=== PATIENT | female | born 1975 | race Caucasian/White ===

== ENCOUNTER 2017-03-27 19:20 | Emergency (ER) | payer OTHER ==
[2017-03-27] MEDS ORDERED: TORAdol 30 mg Injection IM ONE (19:33)
--- NOTE | 2017-03-27 19:36 | ERPHSYRPT ---
- History of Present Illness Time Seen by Provider: 03/27/17 19:28 Source: patient Exam Limitations: no limitations Physician History: 41 y/o female comes to the ER after having her right foot get stuck into a ditch. Pt describes the pain as sharp, constant, 8/10, worse with movement and not relieved by motrin. Pt says she was able to limp to the ER but it was very painful. Method of Injury: twisted Occurred: just prior to arrival Quality: constant Severity of Pain-Max: severe Severity of Pain-Current: severe Lower Extremities Pain: ankle: right Modifying Factors: Improves With: movement Associated Symptoms: unable to bear weight Allergies/Adverse Reactions: No Known Drug Allergies Allergy (Unverified 09/23/13 04:22) Home Medications: Multivitamin [Multivitamins] 1 each PO DAILY 09/23/13 [History] Hx Tetanus, Diphtheria Vaccination/Date Given: Yes Hx Influenza Vaccination/Date Given: No Hx Pneumococcal Vaccination/Date Given: No - Review of Systems Constitutional: No Fever, No Chills Eyes: No Symptoms Ears, Nose, & Throat: No Symptoms Respiratory: No Cough, No Dyspnea Cardiac: No Chest Pain, No Edema, No Syncope Abdominal/Gastrointestinal: No Abdominal Pain, No Nausea, No Vomiting, No Diarrhea Genitourinary Symptoms: No Dysuria Musculoskeletal: Joint Swelling, No Back Pain, No Neck Pain Skin: No Rash Neurological: No Dizziness, No Focal Weakness, No Sensory Changes Psychological: No Symptoms Endocrine: No Symptoms All Other Systems: Reviewed and Negative - Past Medical History Pertinent Past Medical History: No Neurological History: No Pertinent History ENT History: No Pertinent History Cardiac History: No Pertinent History Respiratory History: No Pertinent History Endocrine Medical History: No Pertinent History Musculoskeletal History: No Pertinent History GI Medical History: No Pertinent History History: No Pertinent History Psycho-Social History: No Pertinent History Female Reproductive Disorders: No Pertinent History - Past Surgical History Past Surgical History: Yes Neuro Surgical History: No Pertinent History Cardiac: No Pertinent History Respiratory: No Pertinent History Gastrointestinal: Appendectomy Genitourinary: No Pertinent History Musculoskeletal: No Pertinent History Female Surgical History: No Pertinent History - Social History Smoking Status: Current every day smoker How long have you smoked: 10 yrs Exposure to second hand smoke: Yes Drug Use: none Patient Lives Alone: No - Female History Hx Now: No - Nursing Vital Signs Nursing Vital Signs: Pain Scale Pain Intensity 8 - Physical Exam General Appearance: alert Eyes, Ears, Nose, Throat Exam: moist mucous membranes Neck Exam: non-tender, supple Cardiovascular/Respiratory Exam: chest non-tender, normal breath sounds, regular rate/rhythm, no respiratory distress Gastrointestinal/Abdominal Exam: non-tender, guarding Back Exam: normal inspection, No vertebral tenderness Ankle Exam: right ankle: limited range of motion, pain, soft tissue tenderness, swelling Neuro/Tendon Exam: normal sensation, normal motor functions Mental Status Exam: alert, oriented x 3, cooperative Skin Exam: normal color, warm, dry - Course Nursing assessment & vital signs reviewed: Yes Ordered Tests: Active Orders 24 hr Category Date Time Status Crutches STAT Care 03/27/17 20:15 Ordered Splint STAT Care 03/27/17 20:14 Ordered ANKLE (3 VIEWS) Stat Exams 03/27/17 Taken Medication Summary Discontinued Medications Generic Name Dose Route Start Last Admin Trade Name Freq PRN Reason Stop Dose Admin Ketorolac Tromethamine 60 mg 03/27/17 19:33 03/27/17 19:41 Toradol 30 Mg Injection IM 03/27/17 19:34 60 mg STAT ONE Administration Ketorolac Tromethamine Confirm 03/27/17 19:38 Toradol 30 Mg Injection Administered 03/27/17 19:39 Dose 60 mg .ROUTE .STK-MED ONE - Progress Progress: improved Progress Note: 03/27/17 20:15 The x ray of the right ankle appears to show a small right distal fibula fracture. Pt feels better after receiving toradol. Pt will be applied in a splint and will be giving crutches. Pt will also be referred to orthopedics. - Departure Time of Disposition: 20:16 Departure Disposition: Home Clinical Impression: Fracture of distal fibula Qualifiers: Encounter type: initial encounter Fracture type: closed Fracture morphology: unspecified fracture morphology Laterality: right Qualified Code(s): S82.831A - Other fracture of upper and lower end of right fibula, initial encounter for closed fracture Condition: Stable Critical Care Time: No Referrals: STANISLAW CROFT [Primary Care Provider] - IWONA MCCLENDON [ACTIVE STAFF] - Instructions: Foot Fracture Additional Instructions: Follow up with Dr Mcclendon tomorrow for further recommendations. Prescriptions: Ketorolac Tromethamine [Toradol] 10 mg PO QID PRN #20 tablet PRN Reason: Pain
[2017-03-27] MEDS ORDERED: TORAdol 30 mg Injection ONE (19:38)
[2017-03-27 20:35] VITALS: BP 125/71; PULSE 72; O2SAT 97
--- NOTE | 2017-03-28 08:56 | XRAY ---
Indication: Pain following twisting injury. Remote lateral malleolar fracture 20 years ago. Comparison: None 3 views of the right ankle demonstrates mild anterolateral soft tissue swelling, tiny medial malleolar spur, and tiny ossification adjacent to the lateral malleolar tip presumed old injury. No other bony, articular, or soft tissue abnormalities.
== END 2017-03-27 20:35 | disposition home or self-care (01) ==
LOC: ED 19:20
DX: S82.831A Other fracture of upper and lower end of right fibula, initial encounter for closed fracture (principal); W17.2XXA Fall into hole, initial encounter
CPT/HCPCS: 73610; 96372; 99284; J1885

== ENCOUNTER 2021-07-30 06:26 | Day surgery (SDC) | payer BC ==
[2021-07-30] MEDS ORDERED: Lactated Ringers 1,000 ML IV SCH (07:00)
[2021-07-30] MEDS ORDERED: Xylocaine-Mpf 2% 5 Ml Vial ONE (07:53)
[2021-07-30] MEDS ORDERED: DIPRIVAN 200 MG/20 ML IV ONE ×2 (07:53→08:08)
[2021-07-30 08:57] VITALS: PULSE 54
--- NOTE | 2021-07-30 09:10 | OP ---
SURGERY DATE/TIME: 07/30/2021 0759 PREOPERATIVE DIAGNOSIS: Screening exam. POSTOPERATIVE DIAGNOSIS: Normal colon. PROCEDURE: Colonoscopy. SURGEON: Dr. Espinoza. ANESTHESIA: MAC. Medications given by anesthesia department. HISTORY: The patient is a 46-year-old white female presenting now for screening colonoscopy. She was appraised of the risks of the procedure including the risk of perforation, phlebitis, untoward reaction to medication, bleeding and missed lesions. The patient verbalized her understanding and desired to have the procedure performed. DESCRIPTION OF PROCEDURE: The patient was given the medications by the anesthesia department. She had continuous pulse oximetry, ECG monitoring, intermittent blood pressure monitoring and tidal CO2 monitoring during the examination. She was placed in the left lateral decubitus position. A digital rectal examination was performed and revealed normal anal sphincter tone and no masses. The flexible Olympus pediatric colonoscope was used to intubate the rectum. A view of the colon was developed sequentially to the cecum. Upon insertion and withdrawal, including a retroflex view in the rectum, no mucosal lesions were encountered. The scope was removed from the patient who tolerated the procedure well and was sent back to OP recovery in good condition. The prep was noted to be good.
[2021-07-30 09:12] VITALS: BP 125/63; O2SAT 99
== END 2021-07-30 09:20 | disposition home or self-care (01) ==
LOC: SDC 06:26
PROVIDERS: ATTEND Family Medicine
DX: Z12.11 Encounter for screening for malignant neoplasm of colon (principal)
CPT/HCPCS: 84703; J2704